=== PATIENT | female | born 1960 | race Caucasian/White ===

== ENCOUNTER → 2016-09-20 | Outpatient (CLI) | payer BC ==
[~2016-09-20] MED LIST: AMX500 PO; BUPRTAB51 PO; MULT-506 PO
--- NOTE | 2016-09-20 15:18 | MAMMOGRAPHY REPORT ---
BILATERAL DIGITAL SCREENING MAMMOGRAM TOMOSYNTHESIS WITH CAD: 09/20/2016 CLINICAL HISTORY: Routine screening. Patient has no complaints. TECHNIQUE: Breast tomosynthesis in addition to standard 2D mammography was performed. Current study was also evaluated with a Computer Aided Detection (CAD) system. COMPARISON: Comparison is made to exams dated: 09/07/2015 mammogram, 03/07/2015 mammogram, 4 mammogram, 08/25/2014 mammogram, 04/08/2011 mammogram, and 09/18/2009 mammogram - [facility]. BREAST COMPOSITION: The tissue of both breasts is heterogeneously dense, which may obscure small ma sses. FINDINGS: No suspicious masses, calcifications, or areas of architectural distortion are noted in e ither breast. There has been no significant interval change compared to prior exams. Bilateral harriet gn-appearing calcifications are not significantly changed. IMPRESSION: ACR BI-RADS CATEGORY 2: BENIGN There is no mammographic evidence of malignancy. A 1 year screening mammogram is recommended. The p atient will receive written notification of the results. Approximately 10% of breast cancers are not detected with mammography. A negative mammographic repor t should not delay biopsy if a clinically suggestive mass is present. Nae Garcia M.D. /:09/20/2016 13:49:21 Embossing Toolsetter: Elizabeth Gonzalez, [facility] letter sent: Normal 1/2 BI-RADS Code: ACR BI-RADS Category 2: Benign
== END | disposition home or self-care (01) ==
LOC: C.MAMM 08:41
PROVIDERS: ATTEND Family Medicine
DX: Z12.31 Encounter for screening mammogram for malignant neoplasm of breast (principal)

== ENCOUNTER → 2016-10-03 | Outpatient (CLI) | payer BC ==
[2016-10-03 10:00] LABS: CHOLESTEROL/HDL RATIO 3.9
== END | disposition home or self-care (01) ==
LOC: C.LAB1850 07:51
PROVIDERS: ATTEND Family Medicine
DX: E78.2 Mixed hyperlipidemia (principal); I10 Essential (primary) hypertension

== ENCOUNTER → 2017-10-16 | Outpatient (CLI) | payer OTHER ==
--- NOTE | 2017-10-17 15:26 | MAMMOGRAPHY REPORT ---
BILATERAL DIGITAL SCREENING MAMMOGRAM TOMOSYNTHESIS WITH CAD: 10/16/2017 CLINICAL HISTORY: Routine screening. The patient has no current complaints. TECHNIQUE: Breast tomosynthesis in addition to standard 2D mammography was performed. Current study was also evaluated with a Computer Aided Detection (CAD) system. COMPARISON: Comparison is made to exams dated: 09/20/2016 mammogram, 09/07/2015 mammogram, 03/07/2015 mammogram, 08/25/2014 mammogram, 04/08/2011 mammogram, and 09/18/2009 mammogram - [facility]. BREAST COMPOSITION: The tissue of both breasts is heterogeneously dense, which may obscure small mas ses. FINDINGS: There is a nodular 9 mm asymmetry seen within the left slightly lateral breast middle depth on the cc view only, for which spot compression tomosynthesis views and possible breast ultrasound a re recommended for further evaluation. The remainder of both breasts are stable compared to prior exams, without suspicious masses, calcific ations, or areas of architectural distortion noted. Scattered bilateral benign-appearing calcificati ons are not significantly changed. IMPRESSION: ACR BI-RADS CATEGORY 0: INCOMPLETE EVALUATION: NEED ADDITIONAL IMAGING EVALUATION Left breast asymmetry, for which additional imaging evaluation is recommended. The patient will be c alled to schedule an appointment. Approximately 10% of breast cancers are not detected with mammography. A negative mammographic report should not delay biopsy if a clinically suggestive mass is present. Nae Garcia M.D. /:10/16/2017 14:52:14 Internal Medicine Physician Assistant: Elizabeth SNYDER(Merle)(M), [facility] letter sent: Addl Imaging 0 BI-RADS Code: ACR BI-RADS Category 0: Incomplete Evaluation: Need Additional Imaging Evaluation
== END | disposition home or self-care (01) ==
LOC: C.MAMM 13:41
PROVIDERS: ATTEND Family Medicine
DX: Z12.31 Encounter for screening mammogram for malignant neoplasm of breast (principal); N64.89 Other specified disorders of breast

== ENCOUNTER → 2017-10-29 | Outpatient (CLI) | payer OTHER ==
--- NOTE | 2017-10-29 15:14 | MAMMOGRAPHY REPORT ---
UNILATERAL LEFT DIGITAL DIAGNOSTIC MAMMOGRAM TOMOSYNTHESIS AND TARGETED LEFT ULTRASOUND: 10/29/2017 CLINICAL HISTORY: 57-year-old woman called back from screening mammography for a 9 mm nodular asymmet ry identified in the slightly lateral, middle one third of the left breast on the CC view. Patient r zac no family history of breast cancer. TECHNIQUE: Spot compression 2-D and tomosynthesis left CC and MLO views were obtained. Additional f ull field left CC and MLO tomosynthesis views were obtained after placement of a skin BB marker for l ocalization purposes. COMPARISON: Comparison is made to exams dated: 10/16/2017 mammogram, 09/20/2016 mammogram, 09/07/2015 m ammogram, 03/07/2015 mammogram, 09/05/2014 mammogram, and 08/25/2014 mammogram - [facility]. BREAST COMPOSITION: The tissue of the left breast is heterogeneously dense, which may obscure small masses. FINDINGS: The supplemental spot compression views of the left breast demonstrate a persistent 7.3 x 6 .5 mm nodular asymmetry in the middle one third of the left breast, along the posterior nipple line. On the spot compression MLO tomosynthesis images, there is a multilobulated partially circumscribed 10 mm mass in the superior middle one third of the breast, with a small focus of layering dependent c alcification, suggesting milk of calcium within a cyst. This does not definitely correlate with the CC finding. Nevertheless, further evaluation with ultrasound was performed in the 11:00 through 2:00 axes of the left breast and also 5:00, 6:00 and 7:00 axes. Targeted ultrasound was performed in the left breast. In the 2:00 axis, 5 cm from the nipple, there is a multiloculated predominantly anechoic cystic appearing mass with internal septations and/or debr is. No internal vascularity is demonstrated. This most likely represents a complex located cyst or cyst cluster, it measures 8.7 x 3.5 x 6.7 mm. This could possibly correlate with the MLO lobulated m ass, but thought to be located too laterally to correspond to the CC nodular asymmetry. A second rahat per yet similar appearing cyst cluster is also seen in the 2:00 left breast on the ultrasound images. In the 11:00 to 11:30 left breast there is a multilobulated predominantly anechoic cyst, with a few t hin internal septations. No internal vascularity is demonstrated. This cyst measures 6.2 x 6.0 x 9. 5 mm and could possibly correlate with the initial screening mammogram finding. Depending on the pat ient's positioning whether it is supine or right lateral decubitus, this lesion is located along the sagittal plane of the nipple. Therefore, a skin BB was placed overlying the sonographic finding and full field left CC and MLO tomosynthesis views were performed. The additional tomosynthesis views of the left breast demonstrate a less conspicuous nodular asymmetr y in the CC projection. The BB may possibly correlate with the original finding although difficult t o make a definitive correlation given the large size and pendulous nature of the breasts, with slight ly different position with each mammographic view. As I suspect this cysts in the 11:00 to 11:30 lef t breast corresponds with the initial mammogram finding is probably benign, particularly given the lo wer density and most conspicuous nature on the post localization full field view performed today. Carlos godfrey, a very short follow-up left diagnostic tomosynthesis mammogram and repeat targeted ultrasound is recommended to ensure stability in 3 months. We discussed other options of stereotactic tomosynth esis guided biopsy or MRI, but the patient is not high risk and therefore we will opt for very short follow-up. IMPRESSION: ACR-BI-RADS CATEGORY 3: PROBABLY BENIGN, TARGETED ULTRASOUND ACR-BI-RADS CATEGORY 3: PRO BABLY BENIGN The 9 mm nodular asymmetry in the middle one third of the left breast, best seen in the CC projection may correspond to a lobulated cyst identified in the 11:00 to 11:30 left breast on ultrasound. Mavis jacobs, given that a localization procedure did not definitely demonstrate alignment yet the initial fin ding was less prominent on the post localization images this finding is probably benign. However, a very short follow-up left diagnostic tomosynthesis mammogram and repeat targeted ultrasound is recomm ended in 3 months to ensure stability. These results and recommendations were discussed with the patient at the time of the exam. She tenta tively scheduled a follow-up appointment prior to leaving our department. Approximately 10% of breast cancers are not detected with mammography. A negative mammographic report should not delay biopsy if a clinically suggestive mass is present. Yoanna Velazquez M.D. ay/:10/29/2017 12:05:21 Index Clerk: Imelda SILVEIRA)(Jacy), [facility] letter sent: Follow Up Recommended 3 BI-RADS Code: ACR-BI-RADS Category 3: Probably Benign Ultrasound BI-RADS: ACR-BI-RADS Category 3: Pr obably Benign
== END | disposition home or self-care (01) ==
LOC: C.MAMM 10:44
PROVIDERS: ATTEND Family Medicine
DX: R92.2 Inconclusive mammogram (principal); N63.20 Unspecified lump in the left breast, unspecified quadrant

== ENCOUNTER 2023-05-20 05:12 | Observation (INO) ==
--- NOTE | 2023-04-28 15:58 | PAT Medication Instructions ---
Medication Instructions Date of Service April 28, 2023 Home Medications Medication Instructions Recorded CPAP Machine #1 ea 05/29/21 aspirin 325 mg tablet 325 mg PO QAM atorvastatin 40 mg tablet 40 mg PO QAM glucosamine HCl 500 mg tablet 500 mg PO BID immune complex 1 dose PO QAM methyl B complex 1 dose PO QAM multivitamin (Daily Multi-Vitamin tablet) 1 tab PO QAM vitamins A,C,and E-selenium capsule (Super Antioxidant capsule) 1 cap PO QAM bupropion HCl 150 mg 24 hr tablet, extended release 150 mg PO BID syyudfwhoz-stkucwnrodnug-urdmvczl 50 mg-325 mg-40 mg tablet 1 tab PO Q6H PRN Headache calcium mineral complex 1 dose PO BID omega-3 fatty acids 500 mg capsule 500 mg PO QAM valacyclovir 500 mg tablet 500 mg PO DAILY PRN cold sores cholecalciferol (vitamin D3) 50 mcg (2,000 unit) capsule 50 mcg PO BID diclofenac sodium 75 mg tablet,delayed release 75 mg PO BID loratadine 10 mg disintegrating tablet (Alavert) 10 mg PO QAM amlodipine 2.5 mg tablet 2.5 mg PO QAM chlorthalidone 25 mg tablet 25 mg PO QAM montelukast 10 mg tablet (Singulair) 10 mg PO QPM ASK your surgeon for instructions urnjemoymu-yewsgmwklkusa-sznfebcf 50 mg-325 mg-40 mg tablet 1 tab PO Q6H PRN Headache diclofenac sodium 75 mg tablet,delayed release 75 mg PO BID ASK your prescriber and surgeon aspirin 325 mg tablet 325 mg PO QAM immune complex 1 dose PO QAM STOP taking 2 weeks before surgery (or as soon as possible if surgery is within 2 weeks) glucosamine HCl 500 mg tablet 500 mg PO BID methyl B complex 1 dose PO QAM vitamins A,C,and E-selenium capsule (Super Antioxidant capsule) 1 cap PO QAM omega-3 fatty acids 500 mg capsule 500 mg PO QAM DO NOT take the morning of surgery multivitamin (Daily Multi-Vitamin tablet) 1 tab PO QAM calcium mineral complex 1 dose PO BID cholecalciferol (vitamin D3) 50 mcg (2,000 unit) capsule 50 mcg PO BID loratadine 10 mg disintegrating tablet (Alavert) 10 mg PO QAM chlorthalidone 25 mg tablet 25 mg PO QAM Take morning of surgery With a small sip of water, OTHERWISE NOTHING TO EAT OR DRINK AFTER MIDNIGHT: atorvastatin 40 mg tablet 40 mg PO QAM bupropion HCl 150 mg 24 hr tablet, extended release 150 mg PO BID valacyclovir 500 mg tablet 500 mg PO DAILY PRN cold sores (if needed) amlodipine 2.5 mg tablet 2.5 mg PO QAM Take evening before surgery bupropion HCl 150 mg 24 hr tablet, extended release 150 mg PO BID calcium mineral complex 1 dose PO BID valacyclovir 500 mg tablet 500 mg PO DAILY PRN cold sores (if needed) cholecalciferol (vitamin D3) 50 mcg (2,000 unit) capsule 50 mcg PO BID montelukast 10 mg tablet (Singulair) 10 mg PO QPM Other Notes If you have any questions please call us at [phone] or [phone] or [phone] or [phone]
--- NOTE | 2023-05-02 10:35 | Anesthesiology Consultation ---
Date of Service May 02, 2023 Assessment & Plan (1) Encounter for pre-operative examination: - PCP clearance 05/02/23: "...intermediate risk...low risk for cardiac events going for moderate risk surgery..." Outpatient joint assessment: Patient is currently scheduled for inpatient pathway. If re-evaluated and patient/surgeon requests outpatient pathway, patient is acceptable candidate for outpatient joint program from anesthesia standpoint pending surgeon's office assessment of pt motivation/support/completion of same day joint program preop requirements. Chart Review Chart Review: Acceptable Risk for Surgery and Patient seen in Pre Admission Testing Teaching & Discussion Pre-Anesthesia Teaching/Discussion Notes: Instructed NPO after midnight before surgery, except medications with 15 cc of water. Medication instructions provided according to the PAT guidelines. History Surgery Operation Date: 05/20/23 07:00 Proposed Procedures p Right Total Knee Arthroplasty - Delvis George MD Height/Weight Height: 5 ft Weight: 82.5 kg Allergies Allergy/AdvReac Type Severity Reaction Status Date / Time No Known Allergies Allergy Mild Verified 04/28/23 14:35 Medications Home Medications Medication Instructions Recorded Confirmed Last Taken aspirin 325 mg tablet 325 mg PO QAM 03/12/21 04/28/23 Unknown atorvastatin 40 mg tablet 40 mg PO QAM 03/12/21 04/28/23 Unknown glucosamine HCl 500 mg tablet 500 mg PO BID 03/12/21 04/28/23 Unknown immmune complex 1 dose PO QAM 03/23/21 04/28/23 Unknown methyl B complex 1 dose PO QAM 03/23/21 04/28/23 Unknown multivitamin (Daily Multi-Vitamin 1 tab PO QAM 03/23/21 04/28/23 Unknown tablet) vitamins A,C,and E-selenium 1 cap PO QAM 03/23/21 04/28/23 Unknown capsule (Super Antioxidant capsule) CPAP Machine #1 ea 05/29/21 03/04/23 Unknown bupropion HCl 150 mg 24 hr tablet, 150 mg PO BID 05/29/21 04/28/23 Unknown extended release rcjhnttfvq-czvoviuonssgc-rhlupkhb 1 tab PO Q6H PRN Headache 05/29/21 04/28/23 Unknown 50 mg-325 mg-40 mg tablet calcium mineral complex 1 dose PO BID 05/29/21 04/28/23 Unknown omega-3 fatty acids 500 mg capsule 500 mg PO QAM 05/29/21 04/28/23 Unknown valacyclovir 500 mg tablet 500 mg PO DAILY PRN cold sores 05/29/21 04/28/23 Unknown cholecalciferol (vitamin D3) 50 50 mcg PO BID 03/04/23 04/28/23 Unknown mcg (2,000 unit) capsule diclofenac sodium 75 mg 75 mg PO BID 03/04/23 04/28/23 Unknown tablet,delayed release loratadine 10 mg disintegrating 10 mg PO QAM 03/04/23 04/28/23 Unknown tablet (Alavert) amlodipine 2.5 mg tablet 2.5 mg PO QAM 04/28/23 04/28/23 Unknown chlorthalidone 25 mg tablet 25 mg PO QAM 04/28/23 04/28/23 Unknown montelukast 10 mg tablet 10 mg PO QPM 04/28/23 04/28/23 Unknown (Singulair) Past Medical History Medical History (Updated 05/02/23 @ 10:31 by Hanny Larson PA-C) HTN (hypertension) controlled, stable per rpt Hyperlipidemia Sleep apnea CPAP-compliant Patient denies h/o stroke, seizures, heart attack, heart failure, DM, blood clots or blood transfusions. Exercise / Class Metabolic Activity II 4-5 Yardwork/Stairs/Walk up hill (denies chest discomfort or shortness of breath with 1 FOS) Past Family History Family History Father Alzheimer disease Cancer Hypertension Osteoporosis Arthritis Acid reflux Hyperlipidemia Mother Alzheimer disease Kidney disease Sister Cancer ovary, thyroid Past Surgical History Surgical History History of x 2 History of colonoscopy History of non-cataract eye surgery corneal cross linking BL. History of tubal ligation History of uvulopalatopharyngoplasty Past Anesthesia History No Hx of Anesthesia Complications and No Family Hx of Anesthesia Complications History of PONV No Hx of PONV and No Hx of Motion Sickness Social History Smoking Status: Former smoker Do You Dip or Chew Tobacco: No Smoking End Date: 35 years ago Hx Alcohol Use: Yes (1/2 times a week) Alcohol type: hard liquor alcohol intake frequency: 0-2 drinks per day Alcohol Intake Frequency Comment: 1-2 drinks per day Hx Substance Use: No substance use type: does not use Review of Systems Patient denies chest pain, shortness of breath, dyspnea on exertion, reflux, fever, chills, cough, wheezing, or palpitations. Physical Exam Vital Signs Vitals BP 146/81 P 70 TEMP 97.9 SP02 95% on RA RESP 18 Physical Patient resting comfortably in chair in NAD, alert and oriented, responding appropriately throughout visit Full cervical extension range of motion without pain TMD 3.5 finger breadths Mallampati Score 2 Dentition: one crown, denies chipped or loose teeth, caps, implants or bridges Lungs: normal respiratory effort. Good air movement, clear throughout to auscultation, no adventitious breath sounds Cardiac: regular rate and rhythm, no murmurs noted Carotid arteries: negative bruit bilat Lab Results Anesthesia Preop Results Results Anesthesia Widget: WBC 6.99 K/ul (4.8-10.8) 05/02/23 Hgb 14.8 g/dl (12.0-16.0) 05/02/23 Hct 41.5 % (37.0-47.0) 05/02/23 Plt 283 K/uL (130-400) 05/02/23 Na 138 mmol/L (136-145) 05/02/23 K 3.5 mmol/L (3.5-5.1) 05/02/23 Cl 98 mmol/L (98-107) 05/02/23 CO2 32 mmol/L (21-32) 05/02/23 BUN 26 mg/dl (6-23) H 05/02/23 Creat 1.09 mg/dl (0.6-1.2) 05/02/23 Glucose Level 125 mg/dl (70-99(Fasting)) H 05/02/23 PT 10.5 Seconds (9.0-12.0) 05/02/23 PTT 26.3 Seconds (21.0-31.0) 05/02/23 INR 1.0 (0.9-1.1) 05/02/23 Blood Type A Positive 05/02/23 Antibody Screen NEGATIVE 05/02/23 Testing Electrocardiogram Date: 05/02/23 NSR, rate [address] abnormality Cervical Spine Date: 02/18/23 Moderate degenerative changes without acute fracture or subluxation
[2023-05-20] MEDS ORDERED: dexAMETHasone 4 MG TAB PO SCH (06:00)
[2023-05-20] MEDS ORDERED: CeleBREX 200 MG CAP PO SCH (06:00)
[2023-05-20] MEDS ORDERED: ACETAMINOPHEN 500 MG TAB PO SCH ×2 (06:00→10:30)
[2023-05-20] MEDS ORDERED: LR 60ML/HR IV SCH (06:00)
[2023-05-20] MEDS ORDERED: FAMOTIDINE 20 MG TAB PO SCH (06:00)
[2023-05-20] MEDS ORDERED: LR 500ML BOLUS, THEN 15ML/HR IV SCH (06:00)
[2023-05-20] MEDS ORDERED: oxyCODONE HCL 10 MG TABCR (OxyCONTIN) PO SCH (06:00)
[2023-05-20] MEDS ORDERED: TRANEXAMIC ACID 1,000 MG **IV Pre-op IV SCH (06:00)
[2023-05-20] MEDS ORDERED: traMADol HCL 50 MG TABLET PO SCH (06:00)
[2023-05-20] MEDS ORDERED: ceFAZolin 2000MG 2,000 MG/15 ML SYR IV SCH (06:00)
[2023-05-20] MEDS ORDERED: GABAPENTIN 600 MG DOSE PO SCH (06:00)
[2023-05-20] MEDS ORDERED: ROPIVACAINE 0.5% HCL/PF 150 MG, BUPIVACAINE 0.75% MPF 20 ML, EPINEPHrine 0.15 MG, Ketor... INFIL SCH (06:00)
[2023-05-20] MEDS ORDERED: BUPIVACAINE 0.5 % 5 MG/1 ML PF 10ML VIAL ONE (06:11)
[2023-05-20] MEDS ORDERED: ROPIVACAINE 0.5% 5 MG/ML 30 ML VIAL ONE (06:11)
[2023-05-20] MEDS ORDERED: fentaNYL citrate PF 100 MCG/2 ML VIAL ONE (06:40)
[2023-05-20] MEDS ORDERED: PROPOFOL IV EMULSION 10 MG/ML 20 ML VIAL IV ONE ×4 (06:40→07:41)
[2023-05-20] MEDS ORDERED: MIDAZOLAM HCL 1 MG/ML 2ML VIAL ONE (06:40)
[2023-05-20] MEDS ORDERED: VANCOMYCIN HCL 1000MG/20ML VIAL ONE (06:42)
[2023-05-20] MEDS ORDERED: ORTHO JOINT ANESTHETIC ONE (06:42)
--- NOTE | 2023-05-20 06:43 | History & Physical Bridge Note ---
Date of Service May 20, 2023 History & Physical Bridge Note I have examined the patient, reviewed the History & Physical and in the interval since the performance of the History & Physical I have noted the following changes of clinical significance: no changes noted
[2023-05-20] MEDS ORDERED: ePHEDrine sulfate 50 MG/5 ML SYR ONE (07:21)
[2023-05-20] MEDS ORDERED: fentaNYL citrate PF 100 MCG/2 ML VIAL IV PRN (07:23)
[2023-05-20] MEDS ORDERED: ePHEDrine sulfate 50 MG/ML AMP IV PRN (07:23)
[2023-05-20] MEDS ORDERED: ONDANSETRON INJ 2 MG/ML 2 ML VIAL IV PRN ×2 (07:23→10:06)
[2023-05-20] MEDS ORDERED: ATROPINE SULFATE 0.1 MG/ML 10ML SYR IV PRN (07:23)
[2023-05-20] MEDS ORDERED: PROMETHAZINE HCL 12.5 MG in SODIUM CHLORIDE 0.9% 50 ML IV PRN (07:23)
[2023-05-20] MEDS ORDERED: HYDROmorphone INJ 2 MG/ML SYR/VIAL IV PRN (07:23)
[2023-05-20] MEDS ORDERED: KETAMINE 50 MG/5 ML SYRINGE ONE (07:35)
[2023-05-20] MEDS ORDERED: ONDANSETRON INJ 2 MG/ML 2 ML VIAL ONE (07:36)
[2023-05-20] MEDS ORDERED: GLYCOPYRROLATE 0.2 MG/ML VIAL ONE (07:36)
[2023-05-20] MEDS ORDERED: diphenhydrAMINE Capsule 25 MG CAP PO PRN (10:06)
[2023-05-20] MEDS ORDERED: ACETAMINOPHEN 1,000 MG/100 ML VIAL IV PRN (10:06)
[2023-05-20] MEDS ORDERED: MAGNESIUM HYDROXIDE SUSP 30 ML UDC PO PRN (10:06)
[2023-05-20] MEDS ORDERED: HYDROmorphone INJ 0.5 MG/0.5 ML SYR IV PRN (10:06)
[2023-05-20] MEDS ORDERED: bisacodyL 10 MG SUPP PR PRN (10:06)
[2023-05-20] MEDS ORDERED: METOCLOPRAMIDE HCL INJ 5 MG/ML 2 ML VIAL IV PRN (10:06)
[2023-05-20] MEDS ORDERED: traMADol HCL 50 MG TABLET PO PRN (10:06)
[2023-05-20] MEDS ORDERED: NALOXONE HCL 0.4 MG/1 ML VIAL/CARP IV PRN (10:06)
--- NOTE | 2023-05-20 10:06 | Operative Report ---
Post Operative Report Pre & Post Diagnosis Operation Date: 05/20/23 07:00 Pre-Op Diagnosis: Right Knee Osteoarthritis Post-Op Diagnosis: Right Knee Osteoarthritis I identified the patient and participated in the time-out.: Yes Procedure Operation Date: 05/20/23 07:00 Actual Procedures p Right Total Knee Arthroplasty(Right) - Delvis George MD Surgeon Delvis George MD Rug Weaver [employer] physicians assistant county engineer no resident or fellow available Estimated Blood Loss 5 Findings Consistent with Post-Op Diagnosis Specimens None Anesthesia Type MAC Spinal Regional Complications none Disposition Accompanied Patient To Recovery: No Disposition: Recovery Room Indications Lisa is 63 and has right knee pain secondary to arthritis refractory to nonsurgical treatment. She wishes to have her knee replaced. Description of Procedure Informed consent. Patient identified. She identified the operative site as the right knee. I marked with my initials. A preop surgical timeout was performed. Preop dose of IV antibiotics and TXA given. Positioned supine on the OR table with a bump under the right hip. Tourniquet on right side. A padded post under the right calf. Examination under anesthesia revealed range of motion 0-1 125 to 130 degrees of flexion with no significant laxity but she did have a moderate right knee effusion. The leg was prepped and draped in the usual sterile fashion. DVT prophylaxis intraoperatively with foot pumps. Postoperatively mobility mechanical devices and Eliquis. Limb exsanguinated with the Esmarch. Tourniquet inflated 250 mmHg. Midline longitudinal incision was made followed by medial parapatellar arthrotomy. Soft tissue on the anterior aspect of the distal femur was resected. A medial release was performed off the tibia. The retropatellar fat pad was resected and the synovial reflection in the lateral gutter was released. The patella was everted and the knee flexed. The cruciate ligaments were excised. Both were intact. Osteophytes in the notch were removed. The knee was then subluxated. The medial meniscus was largely deficient. It remains were removed. The lateral meniscus and cruciate ligaments were resected. There were grade 4 changes of the medial compartment involving most of the tibia and weightbearing surface of the femur on the medial side. There were grade 3 and 4 changes of the median ridge and medial facet of the patella. A charter pilot hole was drilled into the tibia just in front of and between the tibial spines followed by the introduction of an intramedullary alignment felicia. The tibial guide with a 0 degree slope was pinned to the tibia aligned to the tubercle and set to resect 10 mm off of the lateral side corresponding to about a 6 mm cut medially. This cut was made and sized to a 2 tibia.Attention turned to the femur where a charter pilot hole was drilled into the distal femur just above the PCL origin. This was followed by intramedullary alignment felicia. The distal femoral cutting guide set at 60 degrees right knee valgus 12 mm thick cut. There was no flexion contracture present. The block was pinned in the place and the cuts were made. The extension gap was a symmetric 10. The epicondylar axis was marked out the distal femoral sizing guide was applied and sized with 2.5. The external rotation drill holes were made which matched the epicondylar axis. The size 2.5 anterior down cutting block was applied pinned in place and the cuts were made protecting the collateral ligaments. The size 2.5 box cutting guide was applied and lateralized over to the lateral Margin of the femoral condyle. This was pinned into place and the box cut was made and smoothed with a rasp. A 2.5 posterior stabilized right femur was applied. The tibia was then prepared with the keel and punch aligning the tibial tray with the tubercle. A size 10 spacer was applied which gave full extension unrestricted flexion and trace varus valgus laxity at mid position no in the no laxity at full extension or 90 degrees. The patella was prepared in the standard fashion. It was measured to be 20 mm in thickness. I selected the 35 patella. The guide was set to preserve 13 mm of bone. The cut was made and ended up preserving 12 mm. The paddle was aligned to the knee in slight flexion distal lysed and medialized. The lug holes were drilled and patellar tracking was fine with no hands technique. The trial components were removed. The bony surfaces were prepared with pulsatile lavage. Canals were plugged and the back of the knee was injected with Ortho joint mix taking care to avoid the neurovascular structures posterior and lateral. Smears of cement were placed on the posterior condyles. 2 bags of Simplex P cement were mixed and then while in a doughy working state the cement was applied and the femur tibia and patella were cemented into place and held in full extension until the cemented hardened. The tourniquet is let down after 90 minutes of inflation. The meticulous hemostasis was performed. There was no significant bleeding. The patella tracked fine. Composite patellar thickness after the reconstruction was approximately 20.5 mm. [place] assisted flexion with the extensor mechanism closed was 125 degrees. The knee was stable in full extension and at 90 degrees. There is trace varus valgus laxity in mid position and full extension with neutral alignment. The trial poly was removed and the final polyethylene was inserted. The back of the knee was inspected for cement which was removed as encountered as well as bleeding. Copious pulsatile lavage was performed and the soft tissues were kept moist throughout the surgical procedure with a moist sponge. The extensor mechanism was closed with interrupted #2 FiberWire's above the equator of the patella and running and interrupted #1 Vicryl's below. The skin was closed in layers with 0 and 2-0 Vicryl followed by cynthia on the skin. The leg was cleaned with wet and dry sponges the remainder the Ortho joint mix was injected into the deep soft tissues while the cement was curing and into the skin at the conclusion of the procedure. I saw sterile dressing was applied Xeroform 4 x 4's ABD soft wrap full-length Jonathan wrap and the patient was sent to the floor with a knee immobilizer. She was awakened from anesthesia without difficulty and taken to the recovery room in stable condition. There were no complications. Counts were correct and blood loss is estimated to be 5 cc. The soft tissue and bone resected was sent for specimen. At the conclusion of the operation I spoke to patient's daughter informed her of my findings and postop instructions were given. She will be rehabilitated according to the total knee rehab protocol. She may weight-bear as tolerated. Blood thinners will begin the morning after surgery. Components inserted with a J[employer] PFC Sigma rotating platform knee a size 2.5 posterior stabilized right femur a size 2 mobile-bearing keeled tibial tray a 35 mm 3 peg oval dome patella and a size 2.5 x 10 mm thick rotating platform posterior stabilized polyethylene insert I attest to the content of the Intraoperative Record and any orders documented therein. Any exceptions are noted below.
[2023-05-20] MEDS ORDERED: hydrALAZINE HCL 20 MG/ML VIAL IV PRN (10:11)
--- NOTE | 2023-05-20 10:21 | Operative Report ---
Post Operative Report Pre & Post Diagnosis Operation Date: 05/20/23 07:00 Pre-Op Diagnosis: Right Knee Osteoarthritis Post-Op Diagnosis: Right Knee Osteoarthritis I identified the patient and participated in the time-out.: Yes Procedure Operation Date: 05/20/23 07:00 Actual Procedures p Right Total Knee Arthroplasty(Right) - Delvis George MD Surgeon Dr. Delvis George Wheel Worker [employer] physicians special ed assistant no resident or fellow available Estimated Blood Loss 5 Findings Consistent with Post-Op Diagnosis Specimens bone Complications none Description of Procedure I present during the entire case. I assisted with positioning, draping, retracting, hemostasis, wound closure, and dressing application. I assisted with patient being transitioned back to liter. Patient left OR in stable condition. Please refer to Dr. George's operative report for complete details. I attest to the content of the Intraoperative Record and any orders documented therein. Any exceptions are noted below.
--- NOTE | 2023-05-20 10:37 | XRay Report ---
RIGHT KNEE 2 VIEWS History: Right total knee arthroplasty. Degenerative arthritis. Postop. FINDINGS: The patient is status post a right total knee arthroplasty. The hardware is intact. No frac ture or dislocation. Skin cynthia are in place. Lucency at the fibular neck on the first lateral view is not confirmed on additional views. Therefore, this is likely artifact. IMPRESSION: Right total knee arthroplasty. No evidence for hardware complication. ACT 112: Negative or not required by law. Electronically signed by: Tono Mcgraw M.D. 05/20/2023 10:36 AM
--- NOTE | 2023-05-20 10:38 | Anesthesiology Progress Note ---
Date of Service May 20, 2023 Anesthesia Post Procedure Vital Signs Vital Signs: Temp Pulse Pulse Resp BP Pulse Ox O2 Del Method 05/20/23 10:25 76 20 113/64 93 Nasal Cannula 05/20/23 10:15 75 17 108/62 95 Nasal Cannula 05/20/23 10:05 75 18 110/55 L 94 Nasal Cannula 05/20/23 09:58 36.2 C L 79 13 99/65 L 92 Nasal Cannula 05/20/23 05:45 36.9 C 80 20 146/80 H 96 Room Air O2 Flow Rate 05/20/23 10:25 4 05/20/23 10:15 4 05/20/23 10:05 4 05/20/23 09:58 4 05/20/23 05:45 Pain Intensity Left Knee: Pain Intensity: 4 Transfer of Care Handoff Completed per policy Notes Mental Status: alert / awake / arousable and participated in evaluation Nausea / Vomiting: adequately controlled Pain: adequately controlled Airway Patency, RR, SpO2: stable & adequate BP & HR: stable & adequate Hydration State: stable & adequate Neuraxial Anesthesia: was administered and sensory block is resolving Anesthetic Complications: no major complications apparent and Pt Satisfied with anesthetic care
[2023-05-20] MEDS: SODIUM CHLORIDE 0.9% 1,000 ML IV SCH ×2 (11:37→22:45)
[2023-05-20] MEDS: ACETAMINOPHEN 500 MG TAB PO SCH ×2 (13:05→22:10)
[2023-05-20] MEDS ORDERED: TRANEXAMIC ACID / 0.7% NACL 1,000 MG/100 ML BAG IV SCH (14:00)
[2023-05-20] MEDS: ceFAZolin 2000MG 2,000 MG/15 ML SYR IV SCH (15:53)
[2023-05-20] MEDS: oxyCODONE HCL IR 5 MG TAB (IMMEDIATE RELEASE) PO PRN ×2 (15:54→20:05)
[2023-05-20] MEDS: KETOROLAC 30 MG/ML VIAL IV SCH (17:02)
--- NOTE | 2023-05-20 17:04 | Orthopedic Progress Note ---
Date of Service May 20, 2023 Assessment & Plan (1) Status post knee replacement: Plan: Lisa is doing well. She reports plans to go to [facility] upon discharge from [facility]. The surgical findings were reviewed and discussed with her. X-rays of the knee are reviewed showing good positioning of the implants and no evidence of complication. Goals are pain control rest ice elevation protection and antibiotics and blood thinner starting tomorrow morning. Present on Admission?: Yes Admission and Anticipated Discharge Date Admission Date: May 20, 2023 Subjective Doing well. No problems. Pain well controlled. She has been up to the bathroom and is currently eating. Physical Exam Physical Exam: Immobilizer in place. Foot warm. Capillary refill less than 2 seconds DP and PT pulses 1+ sensation intact throughout she has 5 out of 5 ankle and toe plantarflexion dorsiflexion and eversion strength. Results & Data Vital Signs (Past 12 Hours) Vital Signs Temp Pulse Pulse Resp BP Pulse Ox O2 Del Method 05/20/23 15:49 36.6 C 83 14 130/77 95 Room Air 05/20/23 14:00 73 16 110/64 94 Nasal Cannula 05/20/23 13:04 36.6 C 84 18 116/61 98 Nasal Cannula 05/20/23 11:57 70 16 121/74 100 Nasal Cannula 05/20/23 11:00 Nasal Cannula 05/20/23 11:00 36.4 C L 68 18 112/67 96 Nasal Cannula 05/20/23 11:30 61 18 128/68 97 Nasal Cannula 05/20/23 10:35 36.4 C L 72 17 104/64 96 Nasal Cannula 05/20/23 10:25 76 20 113/64 93 Nasal Cannula 05/20/23 10:15 75 17 108/62 95 Nasal Cannula 05/20/23 10:05 75 18 110/55 L 94 Nasal Cannula 05/20/23 09:58 36.2 C L 79 13 99/65 L 92 Nasal Cannula 05/20/23 05:45 36.9 C 80 20 146/80 H 96 Room Air O2 Flow Rate 05/20/23 15:49 05/20/23 14:00 2 05/20/23 13:04 2 05/20/23 11:57 2 05/20/23 11:00 4 05/20/23 11:00 4 05/20/23 11:30 4 05/20/23 10:35 4 05/20/23 10:25 4 05/20/23 10:15 4 05/20/23 10:05 4 05/20/23 09:58 4 05/20/23 05:45
[2023-05-20] MEDS: SENNA 8.6 MG TAB PO SCH (20:12)
[2023-05-20] MEDS: DOCUSATE SODIUM 100 MG CAP PO SCH (20:12)
[2023-05-20] MEDS: buPROPion XL 150 MG TABCR PO SCH (20:13)
[2023-05-20] MEDS: CHOLECALCIFEROL 1,000 UNITS 25 MCG TAB PO SCH (20:13)
[2023-05-20] MEDS: MONTELUKAST SODIUM 10 MG TABLET PO SCH (20:14)
[2023-05-21] MEDS: ceFAZolin 2000MG 2,000 MG/15 ML SYR IV SCH (00:20)
[2023-05-21] MEDS: KETOROLAC 30 MG/ML VIAL IV SCH ×2 (00:20→05:32)
[2023-05-21] MEDS: ACETAMINOPHEN 500 MG TAB PO SCH ×3 (05:31→21:52)
[2023-05-21 07:18] LABS: Hematocrit (blood only) 29.8 % (37.0-47.0); Mean Corpuscular Hemoglobin 32.9 pg (25.0-34.0); Mean Corpuscular Hgb Conc 36.9 g/dL (32.0-36.0); Mean Corpuscular Volume 89.2 fL (80.0-100.0); Mean Platelet Volume 10.1 fL (9.4-12.4); Platelet Count 234 K/uL (130-400); RDW Coefficient of Variation 11.6 % (11.5-14.5); RDW Standard Deviation 37.2 fL (36.4-46.3); Red Blood Count 3.34 M/uL (4.20-5.40); White Blood Count 14.23 K/ul (4.8-10.8)
[2023-05-21 07:29] LABS: BUN Creatinine Ratio 15.8 (10-20); Creatinine Clr Calc Pharmacy 54.4 ml/min; Est GFR (African American) 69.1 ml/min; Est GFR (Non-African American) 59.6 ml/min; Potassium 2.6 mmol/L (3.5-5.1)
[2023-05-21] MEDS: amLODIPine BESYLATE 5 MG TAB PO SCH (08:02)
[2023-05-21] MEDS: CHOLECALCIFEROL 1,000 UNITS 25 MCG TAB PO SCH ×2 (08:02→20:51)
[2023-05-21] MEDS: LORATADINE 10 MG TAB PO SCH (08:02)
[2023-05-21] MEDS: buPROPion XL 150 MG TABCR PO SCH ×2 (08:02→20:52)
[2023-05-21] MEDS: DOCUSATE SODIUM 100 MG CAP PO SCH ×2 (08:02→20:51)
[2023-05-21] MEDS: APIXABAN 2.5 MG TAB PO SCH ×2 (08:03→20:51)
[2023-05-21] MEDS: ASPIRIN 325 MG ECTAB PO SCH (08:03)
[2023-05-21] MEDS: OMEGA-3 (PURIFIED FISH OIL) 1 GM CAP PO SCH (08:03)
[2023-05-21] MEDS: ATORVASTATIN 40 MG TAB PO SCH (08:03)
[2023-05-21] MEDS: MULTIVITAMIN TAB PO SCH (08:03)
[2023-05-21] MEDS: oxyCODONE HCL IR 5 MG TAB (IMMEDIATE RELEASE) PO PRN ×3 (08:12→20:53)
[2023-05-21] MEDS ORDERED: CHLORTHALIDONE 25 MG TAB PO SCH (09:00)
[2023-05-21] MEDS ORDERED: [UNRECOGNIZED DRUG - OTHER] PO SCH (09:00)
[2023-05-21] MEDS ORDERED: NON-FORMULARY MEDICATION (Multivitamin [Daily Multi-Vitamin] tablet) PO SCH (09:00)
[2023-05-21] MEDS ORDERED: POTASSIUM ACETATE/NSS 10 MEQ/105 ML BAG IV ONE (09:35)
--- NOTE | 2023-05-21 09:51 | Orthopedic Progress Note ---
Date of Service May 21, 2023 Assessment & Plan (1) Status post knee replacement: Plan: Patient is doing well postop day 1 status post right total knee arthroplasty Patient will continue with PT and occupational therapies Weightbearing as tolerated with rolling walker Eliquis to start today 2.5 twice daily for DVT prophylaxis she may continue with 325 mg aspirin as well Will need prescriptions sent. Case management has discussed and put in referral for [facility] waiting authorization discussed with pt this may not get approved. Pt lives alone 2 story home. Wheeled walker prescription left in patient's chart Patient was advised dressing will come off postop day 2 if she still here we will change, consisting of ABD pads with the KELSEY hose Patient has drop in potassium today is 2.6 was 3.5. Currently she is asymptomatic for any cardiac palpitations or chest pain. Questioning of chlorthalidone could cause drop. Discussed with pharmacist this can cause a drop however patient has been on this since last summer for over a year. She is not on any supplementation for potassium. She had no episodes of vomiting or diarrhea postoperatively. She will be given IV potassium and EKG will be done. We will recheck potassium level in AM. Dr. George reached out to hospitalist to discuss further Patient will be continue to followed in house, once discharge she will follow-up as scheduled on 06/[address] George at 1 PM. Admission and Anticipated Discharge Date Admission Date: May 20, 2023 Subjective Patient is a 63-year-old female who is status postop day #1, right total knee arthroplasty with Dr. Harris. She is being seen bedside this a.m. sitting up in bedside chair. She is alert and oriented x3 pleasant and conversive. Therapy is present during her visit. She states she is doing pretty good given the circumstances. She states she has mild pain and rated 4/10 and reports she just took an oxycodone. She states her pain is being managed. She states she is not having any nausea or vomiting episodes. She has been able to eat without difficulty. She states she has been able to go the bathroom as far as urinating she has not had a bowel movement but has been passing gas. She denies any abdominal pain. She denies any heart racing or palpitations or chest pain. She denies any shortness of breath or calf pain. She is requesting use of a walker for on her main living as well as to have an additional walker upstairs. She states she was able to borrow 1 walker but needs 1 for when she gets home. She is anticipating going to [facility] for short period of time prior to returning home. She denies any calf pain or paresthesia in right lower extremity. She denies any any concerns at this time. Review of Systems Review of Systems: Please refer to HPI Physical Exam Physical Exam: General: Patient is alert and oriented x3 pleasant and conversive no acute distress. Integumentary/musculoskeletal: Dressing is in place with a knee immobilizer. Knee immobilizer was removed dressing and Jonathan wrap remained in place. There is no soiling of dressing. Exposed skin is normal in color and temperature. Patient is able to actively do a straight leg raise without assistance. She is able to actively dorsiflex and plantarflex. Patient was able to flex the knee to approximately 45 degrees without assistance. Sensation is intact over right lower extremity. Dorsal pedis pulse is 2. Results & Data Vital Signs (Past 12 Hours) Vital Signs Temp Pulse Resp BP Pulse Ox O2 Del Method 05/21/23 07:09 36.5 C 66 16 122/73 94 Room Air 05/21/23 02:19 36.5 C 72 16 96/57 L 94 Room Air 05/20/23 23:05 36.3 C L 69 18 118/69 94 Room Air Laboratory Results 05/21/23 05/21/23 05/21/23 Range/Units 06:37 06:37 06:37 WBC 14.23 H (4.8-10.8) K/ul RBC 3.34 L (4.20-5.40) M/uL Hgb 11.0 L (12.0-16.0) g/dl Hct 29.8 L (37.0-47.0) % MCV 89.2 (80.0-100.0) fL MCH 32.9 (25.0-34.0) pg MCHC 36.9 H (32.0-36.0) g/dL RDW Std Deviation 37.2 (36.4-46.3) fL RDW Coeff of Irineo 11.6 (11.5-14.5) % Plt Count 234 (130-400) K/uL MPV 10.1 (9.4-12.4) fL Sodium 131 L (136-145) mmol/L Potassium 2.6 L (3.5-5.1) mmol/L Chloride 93 L (98-107) mmol/L Carbon Dioxide 30 (21-32) mmol/L Anion Gap 8 (3-11) BUN 16 (6-23) mg/dl Creatinine 1.01 (0.6-1.2) mg/dl Est Cr Clr Drug Dosing 54.4 ml/min Est GFR ( Amer) 69.1 ml/min Est GFR (Non-Af Amer) 59.6 ml/min BUN/Creatinine Ratio 15.8 (10-20) Glucose 136 H (70-99(Fasting)) mg/dl Calcium 8.0 L (8.6-10.3) mg/dl Hepatitis C Ab (EIA) Pending Diagnostic Findings Knee X-Ray 05/20/23 10:06 RIGHT KNEE 2 VIEWS History: Right total knee arthroplasty. Degenerative arthritis. Postop. FINDINGS: The patient is status post a right total knee arthroplasty. The hardware is intact. No fracture or dislocation. Skin cynthia are in place. Lucency at the fibular neck on the first lateral view is not confirmed on additional views. Therefore, this is likely artifact. IMPRESSION: Right total knee arthroplasty. No evidence for hardware complication. ACT 112: Negative or not required by law. Electronically signed by: Tono Mcgraw M.D. 05/20/2023 10:36 AM
[2023-05-21] MEDS ORDERED: POTASSIUM CHLORIDE / WTR 10 MEQ/100 ML PLCT IV ONE (10:00)
[2023-05-21] MEDS ORDERED: POTASSIUM CHLORIDE CRTAB 20 MEQ TABCR PO STA (10:42)
--- NOTE | 2023-05-21 10:49 | Hospitalist Consultation ---
Date of Consultation May 21, 2023 Assessment & Plan (1) Hypokalemia: Hypokalemia, acute. Suspect diuretic induced Preoperative potassium 3.5. No history of SIADH, adrenal dysfunction -EKG 05/02/2023: Nonspecific ST segment changes, no T wave inversions, good R wave progression, normal sinus rhythm, no territorial ST depressions/elevations. QTc 459. Rate 60 -EKG 05/21/2023: Normal sinus rhythm, nonspecific ST changes without territorial depressions/elevations. Low amplitude T waves. QTc 440. - Leukocytosis, ?reactive perioperative. No diff. No infectious symptoms. 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 Not on any other potassium wasting diuretics. Chlorthalidone held Potassium improved following 1K rider and 40 mEq initial p.o. dose for 2.6 --> 3.2, appropriate calculated rise. We will continue 20 mEq x 2 additional doses and repeat BMP in the morning Magnesium within normal, but not optimized. Goal 2.0. 2 doses Mag-Ox ordered -Repeat BMP in the morning. If normalizes may discharge with outpatient follow- up BMP within 1 week. Repeat EKG in the morning once potassium has normalized. No clinical signs/symptoms of cardiac ischemia Hypertension -Risk/benefits of various antihypertensive options discussed with patient at bedside. Would avoid CCB/BB due to resting heart rate in the low 60s. ABIODUN contraindicated due to history of severe limiting dry cough. Patient is already on amlodipine. Reasonable to continue chlorthalidone with potassium supplementation versus switch to ARB. Patient prefers switch to ARB, will discontinue chlorthalidone on discharge and start losartan 25 mg for outpatient blood pressure control. Should have repeat BMP within 1 week and follow-up to PCP for additional adjustments as needed. Counseled at risk of dry cough on losartan is not 0, but much lower than with lisinopril - Continue amlodipine - Normotensive currently. If SBP >180, may add hydralazine 2.5mg q6h PRN for acute control. Right total knee arthroplasty Ambulation, pain management, DVT prophylaxis per primary Mixed hyperlipidemia Continue atorvastatin Anxiety/depression Continue bupropion Moderate REINALDO CPAP auto titrate nightly, 1020 cmH2O (2) Status post knee replacement: (3) Nocturnal hypoxemia: (4) Obesity: (5) Hyperlipidemia: (6) Sleep apnea: History of Present Illness Attending Physician: Delvis George MD History of Present Illness Lisa is seen at the bedside post total right knee replacement. She reports she feels well, although a little unsteady ambulating and still and a little bit of pain, but otherwise has no concerns. She is aware her potassium was low this morning, she reports that this has never been a problem for her previously. She has been taking hydrochlorothiazide as directed for the last month, she did not take a dose prior to surgery as directed by her package instructions. She is also on amlodipine for blood pressure control, and she reports these medications seem to be working well for her. She denies any history of angina, CAD, renal disease, adrenal disease. No change in voiding habits, no dysuria. She reports that previous to being on hydrochlorothiazide she was on lisinopril but developed a persistent and severe dry nuisance cough which resolved after stopping lisinopril" will never take that again ". She has not had any history of angioedema. Currently denies chest pain, chest pressure, shortness of breath, difficulty breathing, nausea, vomiting, abdominal pain, lightheadedness, dizziness, syncope, and presyncope. Medical History: Reviewed Medications: Reviewed Surgical History: Reviewed Family history: Reviewed Allergies: Reviewed Social History: Reviewed Code Status: Full Allergies Allergy/AdvReac Type Severity Reaction Status Date / Time No Known Allergies Allergy Mild Verified 05/20/23 05:39 Home Medications Medication Instructions Recorded Confirmed Type aspirin 325 mg tablet 325 mg PO QAM 03/12/21 05/20/23 History atorvastatin 40 mg tablet 40 mg PO QAM 03/12/21 05/20/23 History glucosamine HCl 500 mg tablet 500 mg PO BID 03/12/21 05/20/23 History immmune complex 1 dose PO QAM 03/23/21 05/20/23 History methyl B complex 1 dose PO QAM 03/23/21 05/20/23 History multivitamin (Daily Multi-Vitamin 1 tab PO QAM 03/23/21 05/20/23 History tablet) vitamins A,C,and E-selenium 1 cap PO QAM 03/23/21 05/20/23 History capsule (Super Antioxidant capsule) CPAP Machine #1 ea 05/29/21 03/04/23 Rx bupropion HCl 150 mg 24 hr tablet, 150 mg PO BID 05/29/21 05/20/23 History extended release [id number]-xawxifeuqhofi-cbarhogc 1 tab PO Q6H PRN Headache 05/29/21 05/20/23 History 50 mg-325 mg-40 mg tablet calcium mineral complex 1 dose PO BID 05/29/21 05/20/23 History omega-3 fatty acids 500 mg capsule 500 mg PO QAM 05/29/21 05/20/23 History valacyclovir 500 mg tablet 500 mg PO DAILY PRN cold sores 05/29/21 05/20/23 History cholecalciferol (vitamin D3) 50 50 mcg PO BID 03/04/23 05/20/23 History mcg (2,000 unit) capsule diclofenac sodium 75 mg 75 mg PO BID 03/04/23 05/20/23 History tablet,delayed release loratadine 10 mg disintegrating 10 mg PO QAM 03/04/23 05/20/23 History tablet (Alavert) amlodipine 2.5 mg tablet 2.5 mg PO QAM 04/28/23 05/20/23 History chlorthalidone 25 mg tablet 25 mg PO QAM 04/28/23 05/20/23 History montelukast 10 mg tablet 10 mg PO QPM 04/28/23 05/20/23 History (Singulair) Patient History Medical History (Updated 05/21/23 @ 13:32 by Delvis Lopez MD) HTN (hypertension) controlled, stable per rpt Hyperlipidemia Sleep apnea CPAP-compliant Surgical History History of x 2 History of colonoscopy History of non-cataract eye surgery corneal cross linking BL. History of tubal ligation History of uvulopalatopharyngoplasty Family History Father Alzheimer disease Cancer Hypertension Osteoporosis Arthritis Acid reflux Hyperlipidemia Mother Alzheimer disease Kidney disease Sister Cancer ovary, thyroid Social History Smoking Status: Former smoker Tobacco Type: Cigarettes Smoking End Date: 35 years ago; Second Hand Exposure: No; Do You Dip or Chew Tobacco: No; Tobacco Cessation Education Requested by Patient: No Hx Alcohol Use: Yes (1/2 times a week) Alcohol type: hard liquor Hx Substance Use: No Preferred Language: Malay Communication Ability: Effective Private Investigator Required: No Beliefs That Will Affect Care: None Current Living Situation: Alone Feels Safe at Home: Yes Safety Concerns: Feels Safe At This Time Assistive Devices: Walker Review of Systems Review of Systems: All systems reviewed & are unremarkable except as noted in HPI & below Physical Exam Physical Exam: General: A&Ox3. NAD. Cooperative. HEENT: Atraumatic, normocephalic. Vision/hearing grossly Pulm: CTAB A&P. -wheezes, -rales, -rhonchi. Symmetrical chest rise. No increased work of breathing. No respiratory distress. Cardiac: RRR, -mrg. Radial pulses intact and symmetrical. Extremity: Right knee in postsurgical dressing. Able to wiggle toes. Sensation in toes intact to soft touch bilaterally. Results & Data Results & Data Vital Signs (Past 12 Hours) Vital Signs Temp Pulse Resp BP Pulse Ox O2 Del Method 05/21/23 07:09 36.5 C 66 16 122/73 94 Room Air 05/21/23 02:19 36.5 C 72 16 96/57 L 94 Room Air 05/20/23 23:05 36.3 C L 69 18 118/69 94 Room Air PG Care Time/CCT Total # of Minutes Spent Total Time Spent with Patient: Total time spent is greater than 50% in coordination of care (as documented) at patient's floor/unit and/or counseling patient: Coding Level of Care Code 88892 IN/OBS CONSULT LVL 4,60M Diagnoses Hypokalemia E87.6 Status post knee replacement Z96.659 Nocturnal hypoxemia G47.34 Obesity E66.9 Hyperlipidemia E78.5 Sleep apnea G47.30
[2023-05-21 12:53] LABS: BUN Creatinine Ratio 16.2 (10-20); Calcium 8.4 mg/dl (8.6-10.3); Creatinine Clr Calc Pharmacy 46.9 ml/min; Est GFR (African American) 57.8 ml/min; Est GFR (Non-African American) 49.9 ml/min; Magnesium 1.7 mg/dl (1.7-2.4); Potassium 3.2 mmol/L (3.5-5.1)
--- NOTE | 2023-05-21 13:34 | Electrocardiogram Report ---
Test Reason : Blood Pressure : / mmHG Vent. Rate : 072 BPM Atrial Rate : 072 BPM P-R Int : 172 ms QRS Dur : 088 ms QT Int : 402 ms P-R-T Axes : 039 066 -27 degrees QTc Int : 440 ms Normal sinus rhythm Nonspecific ST and T wave abnormality Abnormal ECG When compared with ECG of 02-MAY-2023 10:51, Nonspecific T wave abnormality now evident in Inferior leads T wave inversion now evident in Anterior leads Confirmed by Errol Johnson ([id number]) on 05/21/2023 1:33:46 PM Referred By: Delvis George Confirmed By:Errol Johnson
[2023-05-21] MEDS: POTASSIUM CHLORIDE CRTAB 20 MEQ TABCR PO SCH ×2 (13:38→21:51)
[2023-05-21] MEDS: MAGNESIUM OXIDE 400 MG TAB PO SCH ×2 (16:24→20:50)
[2023-05-21] MEDS: traMADol HCL 50 MG TABLET PO PRN (16:26)
--- NOTE | 2023-05-21 18:16 | Orthopedic Progress Note ---
Date of Service May 21, 2023 Assessment & Plan (1) Status post knee replacement: Plan: Her potassium is 3.2. Spoke with . [facility] has not been improved. She does have a friend available to be with her tomorrow. We will reassess her in the morning with potassium level and EKG per hospitalist. We will change her dressing and determine suitability for discharge. Admission and Anticipated Discharge Date Admission Date: May 20, 2023 Subjective Feeling some discomfort in her knee. Results & Data Vital Signs (Past 12 Hours) Vital Signs Temp Pulse Resp BP Pulse Ox O2 Del Method 05/21/23 14:53 36.6 C 68 16 112/66 97 Room Air 05/21/23 07:09 36.5 C 66 16 122/73 94 Room Air
[2023-05-21] MEDS: MONTELUKAST SODIUM 10 MG TABLET PO SCH (20:52)
[2023-05-21] MEDS: SENNA 8.6 MG TAB PO SCH (20:52)
[2023-05-22] MEDS: traMADol HCL 50 MG TABLET PO PRN ×3 (04:09→16:04)
[2023-05-22] MEDS: ACETAMINOPHEN 500 MG TAB PO SCH ×2 (05:35→14:04)
[2023-05-22 06:36] LABS: BUN Creatinine Ratio 28.3 (10-20); Calcium 8.1 mg/dl (8.6-10.3); Creatinine Clr Calc Pharmacy 59.7 ml/min; Est GFR (African American) 77.3 ml/min; Est GFR (Non-African American) 66.7 ml/min; Magnesium 1.8 mg/dl (1.7-2.4); Potassium 3.1 mmol/L (3.5-5.1)
[2023-05-22] MEDS: oxyCODONE HCL IR 5 MG TAB (IMMEDIATE RELEASE) PO PRN ×2 (08:14→13:54)
[2023-05-22] MEDS: amLODIPine BESYLATE 5 MG TAB PO SCH (08:16)
[2023-05-22] MEDS: ATORVASTATIN 40 MG TAB PO SCH (08:17)
[2023-05-22] MEDS: buPROPion XL 150 MG TABCR PO SCH (08:17)
[2023-05-22] MEDS: OMEGA-3 (PURIFIED FISH OIL) 1 GM CAP PO SCH (08:17)
[2023-05-22] MEDS: APIXABAN 2.5 MG TAB PO SCH (08:18)
[2023-05-22] MEDS: ASPIRIN 325 MG ECTAB PO SCH (08:19)
[2023-05-22] MEDS: CHOLECALCIFEROL 1,000 UNITS 25 MCG TAB PO SCH (08:20)
[2023-05-22] MEDS: MULTIVITAMIN TAB PO SCH (08:20)
[2023-05-22] MEDS: LORATADINE 10 MG TAB PO SCH (08:20)
[2023-05-22] MEDS: DOCUSATE SODIUM 100 MG CAP PO SCH (08:21)
[2023-05-22] MEDS ORDERED: POTASSIUM CHLORIDE CRTAB 20 MEQ TABCR PO STA ×2 (08:40→13:39)
[2023-05-22] MEDS ORDERED: MAGNESIUM SULFATE / D5W 1 GM/100 ML BAG IV ONE (08:41)
[2023-05-22] MEDS ORDERED: SODIUM CHLORIDE 0.9% 500 ML IV SCH (08:45)
--- NOTE | 2023-05-22 13:15 | Electrocardiogram Report ---
Test Reason : Blood Pressure : / mmHG Vent. Rate : 073 BPM Atrial Rate : 073 BPM P-R Int : 170 ms QRS Dur : 094 ms QT Int : 410 ms P-R-T Axes : 030 043 044 degrees QTc Int : 451 ms Sinus rhythm with occasional Premature ventricular complexes Nonspecific ST and T wave abnormality Abnormal ECG When compared with ECG of 21-MAY-2023 10:02, Premature ventricular complexes are now Present Nonspecific T wave abnormality no longer evident in Lateral leads Confirmed by Errol Johnson ([id number]) on 05/22/2023 1:14:52 PM Referred By: Delvis George Confirmed By:Errol Johnson
--- NOTE | 2023-05-22 13:32 | Hospitalist Progress Note ---
Date of Service May 22, 2023 Assessment & Plan (1) Hypokalemia: Plan: Hypokalemia, acute. Suspect diuretic induced in addition to electrolyte shifts during surgery Preoperative potassium 3.5. No history of SIADH, adrenal dysfunction -EKG 05/02/2023: Nonspecific ST segment changes, no T wave inversions, good R wave progression, normal sinus rhythm, no territorial ST depressions/elevations. QTc 459. Rate 60 -EKG 05/21/2023: Normal sinus rhythm, nonspecific ST changes without territorial depressions/elevations. Low amplitude T waves. QTc 440. - Potassium replaced, magnesium replace Still low this AM but improved overall. Na+ also mildly low Repeat ECG today back to baseline -give NS 500mL x 1 over 2 hours, KCl 40 meq po x 1 now, and IV magnesium -repeat labs at 1300 and if improved, can go home -remain off chlorthalidone for now, f/u with PCP (2) Status post knee replacement: Plan: Right total knee arthroplasty Ambulation, pain management, DVT prophylaxis per primary (3) Nocturnal hypoxemia: Plan: Moderate REINALDO CPAP auto titrate nightly, 1020 cmH2O (4) Obesity: Plan: BMI 34 (5) Hyperlipidemia: Plan: Continue atorvastatin (6) Sleep apnea: Plan: CPAP (7) Mood disorder: Plan: Continue bupropion (8) HTN (hypertension): Plan: BPs soft here and no need to add on a replacement anti hypertensive at this time for HTN dc chlorthalidone continue amlodipine consider restarting chlorthalidone vs adding losartan as outpt if BPs creep back up f/u with PCP and monitor BPs at home as discussed with patient Plan Dispo-dc to home today if repeat labs improved Admission and Anticipated Discharge Date Admission Date: May 20, 2023 Subjective Pt having some pain in knee but otherwise feels fine. No CP, SOB, lightheadedness, nausea. I discussed her care with nursing and with Ortho PA Nandini Physical Exam Constitutional: WD/WN, vitals as above Respiratory: normal respiratory effort, lungs clear to auscultation Cardiovascular: RRR, no murmur, no edema Musculoskeletal: Extremities: + extremities abnormal to inspection (RLE in knee immobilizer) Results & Data Results & Data Vital Signs (Past 12 Hours) Vital Signs Temp Pulse Resp BP Pulse Ox O2 Del Method 05/22/23 07:18 36.6 C 69 16 101/63 94 Room Air Laboratory Results CBC, BMP, Magnesium reviewed PG Care Time/CCT Total # of Minutes Spent Total Time Spent with Patient: Total time spent is greater than 50% in coordination of care (as documented) at patient's floor/unit and/or counseling patient: Coding Level of Care Code 94557 SUB INP/OBS CARE 2/35MIN Diagnoses Hypokalemia E87.6 Status post knee replacement Z96.659 Nocturnal hypoxemia G47.34 Obesity E66.9 Hyperlipidemia E78.5 Sleep apnea G47.30 Mood disorder F39 HTN (hypertension) I10
[2023-05-22 13:33] LABS: BUN Creatinine Ratio 26.9 (10-20); Calcium 8.4 mg/dl (8.6-10.3); Creatinine Clr Calc Pharmacy 70.4 ml/min; Est GFR (African American) 94.4 ml/min; Est GFR (Non-African American) 81.5 ml/min; Potassium 3.4 mmol/L (3.5-5.1)
--- NOTE | 2023-05-23 09:30 | Discharge Summary ---
Date of Service May 23, 2023 Admission HPI Per Admitting Provider Patient is a 63-year-old female who is a known patient Dr. George. She presents today for her preoperative history and physical examination for a right total knee arthroplasty with Dr. George on 05/20/2023. She explains that she has had right knee pain that has been ongoing for over a year. She denies any fall or injury that provoked her symptoms. She states that the pain is worse with all weightbearing activities. She states she is limited to standing as well as walking any distance. She states she has worsening pain if she is walking any distance and has to often stop to take rest. She complains of difficulty going up and down the stairs and often will do 1 step at a time. She reports she has 14 stairs at home. She does report that she has prepared an area on her main living for with a half a bath and a sofa bed for when she goes home after surgery. She complains of stiffness after sitting for period of time. 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 She is anticipating to take 4 to 6 weeks off of work and then transition to working at home for maybe another 4 to 6 weeks. She states that she has some swelling in the knee and has had fluid taken off her knee by Dr. George. She feels like the leg is weak compared to the right leg. She denies any buckling or locking of the knee. She denies any redness of the knee. She has a history of having Euflexxa injections with little relief that she completed in September 2022. She has had previous corticosteroid injections without lasting relief. She has tried physical therapy as well as a knee brace. She has been taking oral Voltaren as well as topical Voltaren with minimal relief. At times she will take Tylenol if needed. She had imaging consisting of an x-ray which revealed medial joint [id number] with subchondral sclerosis and osteophytes. Due to a lengthy course of failed conservative treatment patient will be taken to the OR for a right total knee arthroplasty. Patient denies any history of a latex allergy, metal allergy, issues with anesthesia, cardiac or pulmonary issues, bleeding disorder, DVT or PE. Admission Exam (Per Admitting) Constitutional Physical Exam Vitals & Measurements T: 36.5 C HR: 71 (Monitored) RR: 18 BP: 120/70 SpO2: 96% HT: 151.5 cm WT: 81.500 kg (Dosing) WT: 81.5 kg BMI: 35.51 General: Pt is alert and oriented x3. No acute distress. Well-dressed, well- nourished . HEENT: Head: Atraumatic, normocephalic. Eyes: Extraocular movements intact. Pupils equal, round, and reactive to light. Sclerae are normal. Ears: Hearing is grossly normal. Nose: Nares are patent bilaterally. Throat: Oropharynx clear. Mucous membranes moist. Good dentition. Uvula midline. Neg for erythema Neck: Supple. No lymphadenopathy. Nontender to palpation. Full range of motion. Lungs: Clear to auscultation bilaterally. No adventitious sounds. No accessory muscle use. Heart: Regular rate and rhythm. Normal S1, S2. No murmurs, rubs, or gallops appreciated. Abdomen: Soft, nontender, nondistended. Normal bowel sounds heard in all 4 quadrants. Musculoskeletal: Skin is normal in color and temperature negative for erythema. She has a moderate effusion of the right knee negative for any warmth. Her knee range of motion actively on the right is -5 to approximately 125 degrees. I am able to passively get her to full extension. Her left knee 0 to 125 deg jadiel. No laxity appreciated with varus and valgus stress. She has good endpoint with Sterling's. Negative Piper. Her strength of bilateral lower extremities is 5/5. Gait is antalgic without assistive device. Integumentary:normal in color neg for abrasion or rash Neuro: Cranial nerves II-XII grossly intact Psychiatric: Good eye contact, normal mood and affect, cooperative during exam, nonsuicidal Diagnostic Results Xray: Medial joint [id number] with subchondral sclerosis and osteophytes Specialty Data Orthopedic Lab Results 05/21/23 05/21/23 05/21/23 Range/Units 06:37 06:37 06:37 WBC 14.23 H (4.8-10.8) K/ul RBC 3.34 L (4.20-5.40) M/uL Hgb 11.0 L (12.0-16.0) g/dl Hct 29.8 L (37.0-47.0) % MCV 89.2 (80.0-100.0) fL MCH 32.9 (25.0-34.0) pg MCHC 36.9 H (32.0-36.0) g/dL RDW Std Deviation 37.2 (36.4-46.3) fL RDW Coeff of Irineo 11.6 (11.5-14.5) % Plt Count 234 (130-400) K/uL MPV 10.1 (9.4-12.4) fL Sodium 131 L (136-145) mmol/L Potassium 2.6 L (3.5-5.1) mmol/L Chloride 93 L (98-107) mmol/L Carbon Dioxide 30 (21-32) mmol/L Anion Gap 8 (3-11) BUN 16 (6-23) mg/dl Creatinine 1.01 (0.6-1.2) mg/dl Est Cr Clr Drug Dosing 54.4 ml/min Est GFR ( Amer) 69.1 ml/min Est GFR (Non-Af Amer) 59.6 ml/min BUN/Creatinine Ratio 15.8 (10-20) Glucose 136 H (70-99(Fasting)) mg/dl Calcium 8.0 L (8.6-10.3) mg/dl Magnesium (1.7-2.4) mg/dl Hepatitis C Ab (EIA) NON-REACTIVE (NON-REACTIVE) 05/21/23 05/22/23 05/22/23 Range/Units 12:16 05:59 12:54 WBC (4.8-10.8) K/ul RBC (4.20-5.40) M/uL Hgb (12.0-16.0) g/dl Hct (37.0-47.0) % MCV (80.0-100.0) fL MCH (25.0-34.0) pg MCHC (32.0-36.0) g/dL RDW Std Deviation (36.4-46.3) fL RDW Coeff of Irineo (11.5-14.5) % Plt Count (130-400) K/uL MPV (9.4-12.4) fL Sodium 131 L 132 L 130 L (136-145) mmol/L Potassium 3.2 L D 3.1 L 3.4 L (3.5-5.1) mmol/L Chloride 92 L 96 L 95 L (98-107) mmol/L Carbon Dioxide 30 31 30 (21-32) mmol/L Anion Gap 9 5 5 (3-11) BUN 19 26 H 21 (6-23) mg/dl Creatinine 1.17 0.92 0.78 (0.6-1.2) mg/dl Est Cr Clr Drug Dosing 46.9 59.7 70.4 ml/min Est GFR ( Amer) 57.8 77.3 94.4 ml/min Est GFR (Non-Af Amer) 49.9 66.7 81.5 ml/min BUN/Creatinine Ratio 16.2 28.3 H 26.9 H (10-20) Glucose 128 H 109 H 110 H (70-99(Fasting)) mg/dl Calcium 8.4 L 8.1 L 8.4 L (8.6-10.3) mg/dl Magnesium 1.7 1.8 2.0 (1.7-2.4) mg/dl Hepatitis C Ab (EIA) (NON-REACTIVE) Laboratory Results WBC 14.23 K/ul (4.8-10.8) H 05/21/23 06:37 RBC 3.34 M/uL (4.20-5.40) L 05/21/23 06:37 Hgb 11.0 g/dl (12.0-16.0) L 05/21/23 06:37 Hct 29.8 % (37.0-47.0) L 05/21/23 06:37 MCV 89.2 fL (80.0-100.0) 05/21/23 06:37 MCH 32.9 pg (25.0-34.0) 05/21/23 06:37 MCHC 36.9 g/dL (32.0-36.0) H 05/21/23 06:37 RDW Std Deviation 37.2 fL (36.4-46.3) 05/21/23 06:37 RDW Coeff of Irineo 11.6 % (11.5-14.5) 05/21/23 06:37 Plt Count 234 K/uL (130-400) 05/21/23 06:37 MPV 10.1 fL (9.4-12.4) 05/21/23 06:37 Sodium 130 mmol/L (136-145) L 05/22/23 12:54 Potassium 3.4 mmol/L (3.5-5.1) L 05/22/23 12:54 Chloride 95 mmol/L (98-107) L 05/22/23 12:54 Carbon Dioxide 30 mmol/L (21-32) 05/22/23 12:54 Anion Gap 5 (3-11) 05/22/23 12:54 BUN 21 mg/dl (6-23) 05/22/23 12:54 Creatinine 0.78 mg/dl (0.6-1.2) 05/22/23 12:54 Est Cr Clr Drug Dosing 70.4 ml/min 05/22/23 12:54 Est GFR ( Amer) 94.4 ml/min 05/22/23 12:54 Est GFR (Non-Af Amer) 81.5 ml/min 05/22/23 12:54 BUN/Creatinine Ratio 26.9 (10-20) H 05/22/23 12:54 Glucose 110 mg/dl (70-99(Fasting)) H 05/22/23 12:54 Calcium 8.4 mg/dl (8.6-10.3) L 05/22/23 12:54 Magnesium 2.0 mg/dl (1.7-2.4) 05/22/23 12:54 Hepatitis C Ab (EIA) NON-REACTIVE (NON-REACTIVE) 05/21/23 06:37 Impressions Knee X-Ray 05/20/23 10:06 RIGHT KNEE 2 VIEWS History: Right total knee arthroplasty. Degenerative arthritis. Postop. FINDINGS: The patient is status post a right total knee arthroplasty. The hardware is intact. No fracture or dislocation. Skin cynthia are in place. Lucency at the fibular neck on the first lateral view is not confirmed on additional views. Therefore, this is likely artifact. IMPRESSION: Right total knee arthroplasty. No evidence for hardware complication. ACT 112: Negative or not required by law. Electronically signed by: Tono Mcgraw M.D. 05/20/2023 10:36 AM Discharge Data Consultations 05/21/23 10:24 Consult Hospitalist Routine Procedures Performed Operation Date: 05/20/23 07:00 Actual Procedures p Right Total Knee Arthroplasty(Right) - Delvis George MD Hospital Course (1) Status post knee replacement: Her potassium is 3.2. Spoke with . [facility] has not been improved. She does have a friend available to be with her tomorrow. We will reassess her in the morning with potassium level and EKG per hospitalist. We will change her dressing and determine suitability for discharge. Discharge Instructions Weightbearing as tolerated with rolling walker Eliquis 2.5 twice daily for DVT prophylaxis she may continue with 325 mg aspirin as well Will need prescriptions sent. Wheeled walker prescription left in patient's chart Keep dressing clean and dry: consisting of ABD pads with the KELSEY hose Patient potassium increased, .She was asymptomatic for any cardiac palpitations or chest pain. She left the hospital in stable condition. Recommend f/u with PCP Patient will follow-up as scheduled on 06/[address] George at 1 PM.
== END 2023-05-22 16:11 | disposition home health service (06) ==
LOC: 3E 05:12 → ASU 05:12
DX: Z68.34 Body mass index [BMI] 34.0-34.9, adult; Z87.891 Personal history of nicotine dependence; Z79.899 Other long term (current) drug therapy; R09.02 Hypoxemia; I10 Essential (primary) hypertension; G47.30 Sleep apnea, unspecified; E78.5 Hyperlipidemia, unspecified; E66.9 Obesity, unspecified; Z79.82 Long term (current) use of aspirin; M17.11 Unilateral primary osteoarthritis, right knee; E87.6 Hypokalemia